=== PATIENT | female | born 1955 | race African-American/Black ===

== ENCOUNTER 2016-11-30 14:02 | Emergency (ER) | payer MEDICAID ==
[~2016-11-30] VITALS: Ht 157.5 cm; Wt 68.2 kg
[2016-11-30] MEDS ORDERED: SERT-112 PO (14:31)
[2016-11-30] MEDS ORDERED: MIRT-91 PO (14:31)
[2016-11-30] MEDS ORDERED: CARB200T PO (14:31)
[2016-11-30] MEDS ORDERED: HYDR25TA PO (14:32)
[2016-11-30] MEDS ORDERED: ATOR20TA65 PO (14:32)
[2016-11-30] MEDS ORDERED: ABIL5 PO (14:32)
[2016-11-30 16:40] VITALS: BP 138/90
== END 2016-11-30 16:42 | disposition home or self-care (01) ==
LOC: EDSEX 14:02 → ER 15:52
DX: F32.9 Major depressive disorder, single episode, unspecified (principal); R56.9 Unspecified convulsions
CPT/HCPCS: 99284

== ENCOUNTER 2020-08-30 17:11 | Emergency (ER) | payer MEDICAID ==
[~2020-08-30] VITALS: Ht 157.5 cm; Wt 83.0 kg
[~2020-08-30 17:11] MED LIST: ABIL5 PO; ATOR20TA65 PO; CARB200T PO; HYDR25TA PO; MIRT-91 PO; SERT-112 PO
[2020-08-30] MEDS ORDERED: HYDROCODONE/ACETAMINOPHEN 5/325MG TABLET PO ONE (19:45)
[2020-08-30 20:24] VITALS: BP 118/80
== END 2020-08-30 20:26 | disposition home or self-care (01) ==
LOC: ER 17:11
DX: M54.30 Sciatica, unspecified side (principal); G40.909 Epilepsy, unspecified, not intractable, without status epilepticus; F32.9 Major depressive disorder, single episode, unspecified
CPT/HCPCS: 99283